=== PATIENT | female | born 1995 | race Caucasian/White ===

== ENCOUNTER 2016-11-04 13:47 | Emergency (ER) | payer SELFPAY ==
[~2016-11-04] VITALS: Ht 180.3 cm; Wt 54.4 kg
[2016-11-04 14:20] VITALS: BP 108/45
[2016-11-04 14:45] VITALS: BP 108/45
[2016-11-04] MEDS ORDERED: ZOFRAN4 M3 ORAL (15:07)
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
== END 2016-11-04 15:00 | disposition home or self-care (01) ==
LOC: EMR 14:51
DX: Z04.41 Encounter for examination and observation following alleged adult rape (principal)
CPT/HCPCS: 99281